=== PATIENT | female | born 1960 | race African-American/Black ===

== ENCOUNTER 2024-10-05 17:05 | Inpatient (IN) ==
[2024-10-05] MEDS ORDERED: MAGNESIUM, ALUMINUM HYDROXIDE 30 ML ORAL.SUSP PO PRN (22:08)
[2024-10-05] MEDS ORDERED: DOCUSATE SODIUM 100 MG CAPSULE PO PRN (22:08)
[2024-10-05 23:28] LABS: Basophils #(Absolute) Auto 0.1 (0.0-0.1); Basophils%(Percent) Auto 1.3 (0.1-0.85); Eosinophils#(Absolute)Auto 0.2 (0.0-0.2); Eosinophils%(Percent) Auto 3.5 % (0.4-2.8); Granulocytes#(Absolute)- Auto 3.6 (2.3-6.0); Hematocrit 31.7 % (35.9-46.7); Mean Corpuscular Volume 83.6 fl (81.0-93.7); Monocytes #(Absolute)- Auto 0.6 (1.1-3.1); Monocytes %(Percent)- Auto 10.6 % (3.6-9.8); Platelet Count 280 K/uL (152-353)
[2024-10-06] MEDS: NITROGLYCERIN 1 GM OINT...G. TD ONE
[2024-10-06] MEDS: 0.9 % SODIUM CHLORIDE 1000 ML 1,000 ML IV SCH (00:02)
[2024-10-06] MEDS: ACETAMINOPHEN 500 MG TABLET PO PRN (00:03)
[2024-10-06] MEDS: CLINDAMYCIN PHOSPHATE/D5W 600 MG/50 ML PIGGYBACK IV SCH (00:40)
[2024-10-06] MEDS ORDERED: POTASSIUM CHLORIDE IN WATER 10 MEQ/100 ML PIGGYBACK IV SCH ×2 (02:00→04:00)
[2024-10-06] MEDS: MAGNESIUM OXIDE 400 MG TABLET PO ONE (03:16)
[2024-10-06] MEDS: POTASSIUM CHLORIDE 20 MEQ TAB.ER.PRT PO ONE (03:17)
[2024-10-06] MEDS ORDERED: MAGNESIUM OXIDE 400 MG TABLET PO SCH (04:00)
[2024-10-06] MEDS ORDERED: POTASSIUM CHLORIDE 20 MEQ TAB.ER.PRT PO SCH (04:00)
[2024-10-06] MEDS: diphenhydrAMINE HCL 25 MG CAP PO ONE ×4 (04:01→10:53)
[2024-10-06 07:40] LABS: Basophils #(Absolute) Auto 0.1 (0.0-0.1); Basophils%(Percent) Auto 1.9 (0.1-0.85); Eosinophils#(Absolute)Auto 0.3 (0.0-0.2); Eosinophils%(Percent) Auto 6.2 % (0.4-2.8); Granulocytes % - Auto 58.1 % (47.8-71.3); Granulocytes#(Absolute)- Auto 2.9 (2.3-6.0); Hematocrit 33.7 % (35.9-46.7); Mean Corpuscular Volume 83.1 fl (81.0-93.7); Monocytes #(Absolute)- Auto 0.5 (1.1-3.1); Monocytes %(Percent)- Auto 9.5 % (3.6-9.8); Platelet Count 277 K/uL (152-353)
[2024-10-06 07:49] LABS: Potassium 3.2 mmol/L (3.6-5.2)
[2024-10-06] MEDS: ENOXAPARIN SODIUM 40 MG/0.4 ML SYRINGE SUBQ SCH (09:20)
[2024-10-06] MEDS: PANTOPRAZOLE SODIUM 40 MG TABLET.DR PO SCH (09:20)
[2024-10-06] MEDS ORDERED: TIZANIDINE HCL 4 MG TABLET PO PRN (11:31)
[2024-10-06] MEDS ORDERED: [UNRECOGNIZED DRUG - OTHER] PO SCH (11:45)
[2024-10-06] MEDS ORDERED: ESOMEPRAZOLE MAGNESIUM 40 MG PO SCH (11:45)
[2024-10-06] MEDS ORDERED: INSULIN GLARGINE SUBQ SCH (13:00)
[2024-10-06] MEDS ORDERED: OLMESARTAN 20 MG PO SCH (13:00)
[2024-10-06] MEDS ORDERED: TIRZEPATIDE 2.5 MG/0.5 ML SUBQ SCH (13:00)
[2024-10-06] MEDS ORDERED: FLUTICASONE UMECLIDIN VILANTER INH SCH (13:00)
--- NOTE | 2024-10-06 14:00 | History & Physical Report ---
H&P: HPI History of Present Illness Chief complaint: Cellulitis left lower extremity failed outpatient Narrative: Ms. Goodwin was admitted on 10/06/24 as direct admit from PCP due to cellulitis to BLE with pain, redness, and swelling that has progressively gotten worse. She states that it started as what appearted to be a bite that has worsened in 2 weeks with treatment with doxy, levaquin. CBC is WNL, mild hypokalemia at 3.2 improved from 3.0 yesterday. CRP elevated at 1.7, with D-Dimer 861. BLE US is currently pending. Patient was started on clindamycin 600mg IV q6hrs on admit. Review of Systems Status of ROS 10 or more systems reviewed and unremark able except as noted in history and below Musculoskeletal Reports: extremity pain and extremity swelling Integumentary/Breast Reports: itching, redness, skin pain, skin tenderness and skin swelling PFSH PFSH Medical History (Updated 10/06/24 @ 14:13 by Jeromy Krueger NP) Fibromyalgia HTN (hypertension) Arthritis Chronic pain Blind left eye Hypothyroid Diabetes GERD (gastroesophageal reflux disease) COPD (chronic obstructive pulmonary disease) History of fungal infection Left-sided weakness Surgical History (Updated 10/05/24 @ 18:28 by Jadyn Ahmadi LPN) Hx of tonsillectomy Hx of cholecystectomy History of partial hysterectomy S/P [employer] shunt Social History Problems where you live: no known problems Highest level of school completed/degree received: high school Meds Home Medications and Allergies Home Medications Medication Instructions Recorded Confirmed Type amlodipine 5 mg tablet 5 mg PO DAILY 10/06/24 10/06/24 History blood sugar diagnostic (True 10/06/24 10/06/24 History Metrix Glucose Test Strip) blood-glucose sensor (Dexcom G7 10/06/24 10/06/24 History Sensor device) brimonidine 0.1 % eye drops 1 drp ophthalmic (eye) DAILY 10/06/24 10/06/24 History (Alphagan P) empagliflozin 25 mg tablet 25 mg PO DAILY 10/06/24 10/06/24 History (Jardiance) esomeprazole magnesium 40 mg 40 mg PO Q24H 10/06/24 10/06/24 History capsule,delayed release fluconazole 100 mg tablet 100 mg PO DAILY 10/06/24 10/06/24 History fluticasone fur. 200 mcg-umeclid 1 inh inhalation Q24H 10/06/24 10/06/24 History 62.5 mcg-vilant 25 mcg inhalat.powder (Trelegy Ellipta) insulin glargine 100 unit/mL (3 10 unit subcut NIGHTLY 10/06/24 10/06/24 History mL) subcutaneous pen (Lantus Solostar U-100 Insulin) lancets 33 gauge (TRUEplus Lancets) 10/06/24 10/06/24 History levofloxacin 500 mg tablet 500 mg PO DAILY 10/06/24 10/06/24 History levothyroxine 175 mcg tablet 175 mcg PO DAILY 10/06/24 10/06/24 History linaclotide 145 mcg capsule 145 mcg PO DAILY 10/06/24 10/06/24 History (Linzess) metronidazole 500 mg tablet 500 mg PO BID 10/06/24 10/06/24 History montelukast 10 mg tablet 10 mg PO DAILY 10/06/24 10/06/24 History olmesartan 20 mg tablet 20 mg PO DAILY 10/06/24 10/06/24 History pantoprazole 40 mg tablet,delayed 40 mg PO DAILY 10/06/24 10/06/24 History release pregabalin 150 mg capsule 150 mg PO BID 10/06/24 10/06/24 History roflumilast 500 mcg tablet 500 mcg PO DAILY 10/06/24 10/06/24 History ropinirole 3 mg tablet 3 mg PO DAILY 10/06/24 10/06/24 History rosuvastatin 40 mg tablet 40 mg PO DAILY 10/06/24 10/06/24 History tamsulosin 0.4 mg capsule 0.4 mg PO DAILY 10/06/24 10/06/24 History tirzepatide 2.5 mg/0.5 mL 2.5 mg subcut .weekly 10/06/24 10/06/24 History subcutaneous pen injector (Amanda) tizanidine 4 mg tablet 4 mg PO DAILY PRN muscle spasticity 10/06/24 10/06/24 History Allergies Allergy/AdvReac Type Severity Reaction Status Date / Time amoxicillin AdvReac Verified 10/05/24 18:19 STEROIDS AdvReac Unknown Uncoded 10/05/24 18:19 Exam Exam: Patient is ambulatory throughout the room this morning. She complains of itching to bilateral extremities requiring benadryl. She does have +2 BLE edema Constitutional: normal general appearance Vital Signs - 24 hr 10/05/24 18:08 10/05/24 18:08 10/05/24 20:00 Temperature 98.2 F 98.5 F Pulse Rate [Left] 102 H 102 H 96 H Respiratory Rate 24 20 18 Blood Pressure Blood Pressure [Le ft Arm] 129/63 113/57 Pulse Oximetry 94 L 94 L 93 L Oxygen Delivery Me thod Room Air Room Air Room Air 10/06/24 00:00 10/06/24 00:00 10/06/24 03:54 Temperature 97.8 F 97.6 F Pulse Rate [Left] 92 H 83 Respiratory Rate 17 19 Blood Pressure 113/57 Blood Pressure [Le ft Arm] 138/64 123/65 Pulse Oximetry 95 98 Oxygen Delivery Me thod Room Air Nasal Cannula 10/06/24 08:00 10/06/24 12:00 Temperature 97.6 F 97.4 F L Pulse Rate [Left] 91 H 85 Respiratory Rate 19 19 Blood Pressure Blood Pressure [Le ft Arm] 147/69 127/60 Pulse Oximetry 97 98 Oxygen Delivery Me thod Room Air Room Air HENMT: normocephalic, head/scalp atraumatic and hearing grossly normal bilaterally Eyes: PERRL, EOMs intact bilaterally and conjunctivae normal Neck/C-Spine: visual inspection normal, trachea midline, cervical spine nontender and cervical full ROM noted Lymph: no lymphadenopathy noted Chest: inspection of chest normal Respiratory: breath sounds equal bilaterally, normal respiratory effort and clear to auscultation bilaterally Cardiovascular: normal heart rate noted, regular rhythm noted, no gallop, no rub, no murmur and no JVD Gastrointestinal: abdomen normal to inspection, abdomen soft to palpation and nontender to palpation Genitourinary: no CVA tenderness Back/Pelvis: spine normal to inspection and no thoracic spine tenderness Extremities: BLE +2 edema bilaterally with erythema to LLE more than R. Neurology: training assistant II-XII intact, no movement abnormality noted, no focal motor deficit noted, no sensory deficits noted, deep tendon reflexes 2+ bilaterally, gait normal, speech normal, coordination normal, no pronator drift noted, no fasciculations noted and GCS normal Psychiatry: mental status grossly normal, oriented x3, thought process normal, cooperative and memory normal Skin: erythema LLE Assessment and Plan Assessment and Plan (1) Cellulitis: Qualifiers: Site of cellulitis: extremity Site of cellulitis of extremity: lower extremity Laterality: unspecified laterality Qualified Code(s): L03.119 - Cellulitis of unspecified part of limb Code(s): L03.90 - Cellulitis, unspecified (2) Elevated d-dimer: Code(s): R79.89 - Other specified abnormal findings of blood chemistry (3) Diabetes: Qualifiers: Diabetes mellitus type: type 2 Diabetes mellitus marine oil terminal superintendent insulin use: with marine oil terminal superintendent use Diabetes mellitus complication status: without complication Qualified Code(s): E11.9 - Type 2 diabetes mellitus without complications; Z79.4 - terminologist (current) use of insulin Code(s): E11.9 - Type 2 diabetes mellitus without complications (4) HTN (hypertension): Qualifiers: Hypertension type: unspecified Qualified Code(s): I10 - Essential (primary) hypertension Code(s): I10 - Essential (primary) hypertension (5) Fibromyalgia: Code(s): M79.7 - Fibromyalgia Plan Clindamycin 600mg IV q6hrs US BLE Bendadryl 25mg po q4hrs prn Zyrtec 10mg po q day Acccheck ACHS w/ SSI Norvasc 5mg po daily Olmesartan 20mg po daily Rosuvastatin 40mg po HS Lyrica 150mg po BID tizandidine 4mg po daily prn Results Labs Labs: CBC 10/05/24 10/06/24 Range/Units 23:10 07:33 WBC 6.0 5.0 (4.3-9.3) K/uL RBC 3.8 L 4.1 (4.00-5.50) M/uL Hgb 10.0 L 10.9 L (12.5-15.8) gm/dL Hct 31.7 L 33.7 L (35.9-46.7) % Plt Count 280 277 (152-353) K/uL Gran % 60.0 58.1 (47.8-71.3) % Lymph % (Auto) 24.6 24.3 (20.0-43.0) % Blanco % (Auto) 10.6 H 9.5 (3.6-9.8) % Eos % (Auto) 3.5 H 6.2 H (0.4-2.8) % Baso % (Auto) 1.3 H 1.9 H (0.1-0.85) Lymph # (Auto) 1.5 1.2 (1.1-3.1) Blanco # (Auto) 0.6 L 0.5 L (1.1-3.1) Eos # (Auto) 0.2 0.3 H (0.0-0.2) Baso # (Auto) 0.1 0.1 (0.0-0.1) Absolute Gran (auto) 3.6 2.9 (2.3-6.0) CMP 10/05/24 10/06/24 23:10 07:33 Sodium 142 142 Potassium 3.0 L 3.2 L Chloride 108.0 H 109.0 H Carbon Dioxide 29 30 BUN 17 12 Creatinine 1.0 0.9 Glucose 130 H 147 H Calcium 9.3 9.3 Liver Function 10/05/24 Range/Units 23:10 Total Bilirubin 0.42 (0.0-1.0) mg/dL AST 10 L (15-37) U/L ALT 9 L (30-65) U/L Alkaline Phosphatase 79 (50-136) U/L Albumin 3.0 L (3.4-5.0) g/dL
[2024-10-06] MEDS: ROPINIROLE HCL 2 MG TABLET PO SCH (15:22)
[2024-10-06] MEDS: ATORVASTATIN CALCIUM 40 MG TABLET PO SCH (15:22)
[2024-10-06] MEDS: AMLODIPINE BESYLATE 5 MG TABLET PO SCH (15:23)
[2024-10-06] MEDS: CETIRIZINE HCL 10 MG TABLET PO SCH (15:24)
[2024-10-06] MEDS: BUDESONIDE/FORMOTEROL FUMARATE 160/4.5 MCG INH SCH (15:27)
[2024-10-06] MEDS: TIOTROPIUM BROMIDE 18 MCG CAP.W.DEV INH SCH (15:29)
[2024-10-06] MEDS: ONDANSETRON HCL/PF 4 MG/2 ML VIAL INJ PRN (20:53)
[2024-10-06] MEDS: INSULIN GLARGINE-YFGN 100 UNIT/ML INSULN.PEN SUBQ SCH (20:54)
[2024-10-06] MEDS: PREGABALIN 75 MG CAPSULE PO SCH (20:56)
[2024-10-07 08:23] LABS: Basophils #(Absolute) Auto 0.1 (0.0-0.1); Basophils%(Percent) Auto 0.8 (0.1-0.85); Eosinophils#(Absolute)Auto 0.4 (0.0-0.2); Eosinophils%(Percent) Auto 6.3 % (0.4-2.8); Granulocytes % - Auto 71.4 % (47.8-71.3); Granulocytes#(Absolute)- Auto 4.7 (2.3-6.0); Hematocrit 32.1 % (35.9-46.7); Mean Corpuscular Volume 83.8 fl (81.0-93.7); Monocytes #(Absolute)- Auto 0.7 (1.1-3.1); Platelet Count 264 K/uL (152-353); White Blood Count 6.6 K/uL (4.3-9.3)
[2024-10-07 08:29] LABS: Potassium 3.1 mmol/L (3.6-5.2)
[2024-10-07] MEDS ORDERED: LEVOTHYROXINE 175 MCG PO SCH (09:00)
[2024-10-07] MEDS: EMPAGLIFLOZIN 10 MG TABLET PO SCH (09:07)
[2024-10-07] MEDS: MONTELUKAST SODIUM 10 MG TABLET PO SCH (09:07)
[2024-10-07] MEDS: TAMSULOSIN HCL 0.4 MG CAPSULE PO SCH (09:07)
[2024-10-07] MEDS: LOSARTAN POTASSIUM 50 MG TABLET PO SCH (09:08)
[2024-10-07] MEDS: LEVOTHYROXINE SODIUM 100 MCG TABLET PO SCH (10:39)
[2024-10-07] MEDS: LEVOTHYROXINE SODIUM 75 MCG TABLET PO SCH (10:40)
[2024-10-07] MEDS: POTASSIUM CHLORIDE 20 MEQ TAB.ER.PRT PO ONE (10:40)
[2024-10-07] MEDS: BRIMONIDINE TARTRATE 0.15% OPTH SCH (10:41)
[2024-10-07] MEDS: LINACLOTIDE 145 MCG PO SCH (10:43)
[2024-10-07] MEDS: ROFLUMILAST 500 MCG PO SCH (10:43)
[2024-10-07] MEDS ORDERED: LOPERAMIDE HCL 2 MG CAPSULE PO PRN (11:00)
--- NOTE | 2024-10-07 13:35 | Progress Note ---
Progress Note: Subjective Subjective Interval history: Ms. Goodwin has made some improvement this morning with redness more confined to centralized areas on LLE. BLE US was negative for DVTs. She does have pain on palpation to LLE. She is now experiencing diarrhea secondary to abx will check stool and start abx as appropriate. Will start probiotics as well. Exam Exam: Patient is ambulatory throughout the room this morning. She complains of itching to bilateral extremities requiring benadryl. She does have +2 BLE edema Constitutional: normal general appearance Vital Signs - 24 hr 10/06/24 15:23 10/06/24 16:00 10/06/24 20:00 Temperature 98.2 F 98.3 F Pulse Rate [Left] 89 93 H Respiratory Rate 19 17 Blood Pressure 147/69 Blood Pressure [Le ft Arm] 136/72 129/67 Pulse Oximetry 96 93 L Oxygen Delivery Me thod Room Air Room Air Oxygen Flow Rate Fraction of Inspir ed Oxygen 10/06/24 20:53 10/06/24 23:59 10/07/24 04:00 Temperature 97.9 F 97.8 F Pulse Rate [Left] 91 H 79 Respiratory Rate 17 18 Blood Pressure Blood Pressure [Le ft Arm] 123/62 137/70 Pulse Oximetry 93 L 94 L 96 Oxygen Delivery Me thod Room Air Room Air Room Air Oxygen Flow Rate Fraction of Inspir ed Oxygen 21 10/07/24 08:00 10/07/24 09:05 10/07/24 09:08 Temperature 98.1 F Pulse Rate [Left] 96 H Respiratory Rate 22 Blood Pressure 154/72 154/72 Blood Pressure [Le ft Arm] 134/72 Pulse Oximetry 90 L Oxygen Delivery Me thod Room Air Oxygen Flow Rate Fraction of Inspir ed Oxygen 10/07/24 12:00 Temperature 97.5 F L Pulse Rate [Left] 101 H Respiratory Rate 19 Blood Pressure Blood Pressure [Le ft Arm] 110/62 Pulse Oximetry 97 Oxygen Delivery Me thod Nasal Cannula Oxygen Flow Rate 2 Fraction of Inspir ed Oxygen HENMT: normocephalic, head/scalp atraumatic and hearing grossly normal bilaterally Eyes: PERRL, EOMs intact bilaterally and conjunctivae normal Neck/C-Spine: visual inspection normal, trachea midline, cervical spine non tender and cervical full ROM noted Lymph: no lymphadenopathy noted Chest: inspection of chest normal Respiratory: breath sounds equal bilaterally, normal respiratory effort and clear to auscultation bilaterally Cardiovascular: normal heart rate noted, regular rhythm noted, no gallop, no rub, no murmur and no JVD Gastrointestinal: abdomen normal to inspection, abdomen soft to palpation and nontender to palpation Genitourinary: no CVA tenderness Back/Pelvis: spine normal to inspection and no thoracic spine tenderness Extremities: BLE +2 edema bilaterally with erythema to LLE more than R. Neurology: galley cook II-XII intact, no movement abnormality noted, no focal motor deficit noted, no sensory deficits noted, deep tendon reflexes 2+ bilaterally, gait normal, speech normal, coordination normal, no pronator drift noted, no fasciculations noted and GCS normal Psychiatry: mental status grossly normal, oriented x3, thought process normal, cooperative and memory normal Skin: erythema LLE, palpable lymph nodes painful to touch Progress Note: Objective Labs Labs: CBC 10/07/24 Range/Units 08:05 WBC 6.6 (4.3-9.3) K/uL RBC 3.8 L (4.00-5.50) M/uL Hgb 10.3 L (12.5-15.8) gm/dL Hct 32.1 L (35.9-46.7) % Plt Count 264 (152-353) K/uL Gran % 71.4 H (47.8-71.3) % Lymph % (Auto) 11.5 L (20.0-43.0) % Bartholomew % (Auto) 10.0 H (3.6-9.8) % Eos % (Auto) 6.3 H (0.4-2.8) % Baso % (Auto) 0.8 (0.1-0.85) Lymph # (Auto) 0.8 L (1.1-3.1) Bartholomew # (Auto) 0.7 L (1.1-3.1) Eos # (Auto) 0.4 H (0.0-0.2) Baso # (Auto) 0.1 (0.0-0.1) Absolute Gran (auto) 4.7 (2.3-6.0) CMP 10/07/24 08:05 Sodium 144 Potassium 3.1 L Chloride 109.0 H Carbon Dioxide 28 BUN 9 Creatinine 0.8 Glucose 139 H Calcium 9.0 Progress Note: A&P Assessment and Plan (1) Cellulitis: Qualifiers: Site of cellulitis: extremity Site of cellulitis of extremity: lower extremity Laterality: unspecified laterality Qualified Code(s): L03.119 - Cellulitis of unspecified part of limb (2) Elevated d-dimer: (3) Diabetes: Qualifiers: Diabetes mellitus type: type 2 Diabetes mellitus ad terminal makeup operator insulin use: with detention use Diabetes mellitus complication status: without complication Qualified Code(s): E11.9 - Type 2 diabetes mellitus without complications; Z79.4 - remote computer terminal operator (current) use of insulin (4) HTN (hypertension): Qualifiers: Hypertension type: unspecified Qualified Code(s): I10 - Essential (primary) hypertension (5) Fibromyalgia: Plan Clindamycin 600mg IV q6hrs US BLE-negative Bendadryl 25mg po q4hrs prn Zyrtec 10mg po q day Acccheck ACHS w/ SSI Norvasc 5mg po daily Olmesartan 20mg po daily Rosuvastatin 40mg po HS Lyrica 150mg po BID tizandidine 4mg po daily prn Check stool studies Add probiotic daily Immodium per protocol Fall Risk Details [place] Fall Scale Risk Level: Low Fall Risk Current Medications: Current Medications Acetaminophen (Acetaminophen 500 Mg Tablet) 1,000 mg PO Q6H PRN PRN Reason: MILD PAIN SCALE 1-4/fever Last Admin: 10/06/24 20:55 Dose: 1,000 mg Amlodipine Besylate (Amlodipine Besylate 5 Mg Tablet) 5 mg PO DAILY [facility] Last Admin: 10/07/24 09:05 Dose: 5 mg Atorvastatin Calcium (Atorvastatin Calcium 40 Mg Tablet) 80 mg PO DAILY [facility] Last Admin: 10/07/24 09:08 Dose: 80 mg Brimonidine Tartrate (Brimonidine Tartrate 0.15% 5 Ml Drops) 1 drop OPTH DAILY [facility] Last Admin: 10/07/24 10:41 Dose: 1 drop Budesonide/Formoterol Fumarate (Budesonide/Formoterol Fumarate 160/4.5 Mcg) 1 puff INH DAILY [facility] Last Admin: 10/06/24 15:27 Dose: 1 puff Cetirizine HCl (Cetirizine Hcl 10 Mg Tablet) 10 mg PO DAILY [facility] Last Admin: 10/07/24 09:09 Dose: 10 mg Diphenhydramine HCl (Diphenhydramine Hcl 25 Mg Cap) 25 mg PO Q4H PRN PRN Reason: Itching Docusate Sodium (Docusate Sodium 100 Mg Capsule) 100 mg PO DAILY PRN PRN Reason: Constipation Empagliflozin (Empagliflozin 10 Mg Tablet) 25 mg PO DAILY [facility] Last Admin: 10/07/24 09:07 Dose: 25 mg Enoxaparin Sodium (Enoxaparin Sodium 40 Mg/0.4 Ml Syringe) 40 mg SUBQ DAILY [facility] Last Admin: 10/07/24 09:05 Dose: 40 mg Sodium Chloride (Sodium Chloride) 1,000 mls @ 100 mls/hr IV CONT [facility] Last Admin: 10/07/24 03:12 Dose: 100 mls/hr Clindamycin Phosphate/Dextrose (Clindamycin Phosphate/D5w) 600 mg in 50 mls @ 50 mls/hr IV Q6H [facility] Last Admin: 10/07/24 05:34 Dose: 50 mls/hr Potassium Chloride (Potassium Cl 10 Meq/100 Ml Sarahi) 10 meq in 100 mls @ 100 mls/hr IV ONCE TODD Potassium Chloride (Potassium Cl 10 Meq/100 Ml Sarahi) 10 meq in 100 mls @ 100 mls/hr IV ONCE TODD Insulin Glargine-yfgn (Insulin Glargine-Yfgn 100 Unit/Ml Insuln.Pen) 10 unit SUBQ BEDTIME [facility] Last Admin: 10/06/24 20:54 Dose: 10 unit Insulin Human Regular (Insulin Regular, Human 100 Unit/Ml) 0 unit SUBQ ACHS PRN; Protocol PRN Reason: hyperglycemia Insulin Human Regular (Insulin Regular, Human 100 Unit/Ml) 0 unit SUBQ ACHS PRN; Protocol PRN Reason: hyperglycemia Ketorolac Tromethamine (Ketorolac 30 Mg/Ml Inj Vial) 30 mg IVP Q6H PRN PRN Reason: MILD PAIN SCALE 1-4 Stop: 10/11/24 14:59 Lactobacillus Acidophilus (L. Acidophilus/L.Bulgaricus 1 Each Tablet) 1 each PO DAILY [facility] Levothyroxine Sodium (Levothyroxine Sodium 75 Mcg Tablet) 75 mcg PO QDAC [facility] Last Admin: 10/07/24 10:40 Dose: 75 mcg Levothyroxine Sodium (Levothyroxine Sodium 100 Mcg Tablet) 100 mcg PO QDAC [facility] Last Admin: 10/07/24 10:39 Dose: 100 mcg Loperamide HCl (Loperamide Hcl 2 Mg Capsule) 2 mg PO Q6H PRN PRN Reason: Diarrhea Losartan Potassium (Losartan Potassium 50 Mg Tablet) 20 mg PO DAILY [facility] Last Admin: 10/07/24 09:08 Dose: 20 mg Magnesium Hydroxide (Magnesium, Aluminum Hydroxide 30 Ml Oral.Susp) 30 ml PO DAILY PRN PRN Reason: Constipation Montelukast Sodium (Montelukast Sodium 10 Mg Tablet) 10 mg PO DAILY [facility] Last Admin: 10/07/24 09:07 Dose: 10 mg Non-Formulary Medication (Linaclotide [Linzess]) 145 mcg PO DAILY [facility] Non-Formulary Medication (Roflumilast) 500 mcg PO DAILY [facility] Non-Formulary Medication (Tirzepatide [Mounjaro]) 2.5 mg SUBQ .weekly [facility] Ondansetron HCl (Ondansetron Hcl/Pf 4 Mg/2 Ml Vial) 4 mg INJ Q4H PRN PRN Reason: Nausea And Vomiting Last Admin: 10/06/24 20:53 Dose: 4 mg Pantoprazole Sodium (Pantoprazole Sodium 40 Mg Tablet.Dr) 40 mg PO DAILY [facility] Last Admin: 10/07/24 09:09 Dose: 40 mg Pregabalin (Pregabalin 75 Mg Capsule) 150 mg PO BID [facility] Last Admin: 10/07/24 09:05 Dose: 150 mg Ropinirole HCl (Ropinirole Hcl 2 Mg Tablet) 3 mg PO DAILY [facility] Last Admin: 10/07/24 09:06 Dose: 3 mg Tamsulosin HCl (Tamsulosin Hcl 0.4 Mg Capsule) 0.4 mg PO DAILY [facility] Last Admin: 10/07/24 09:07 Dose: 0.4 mg Tiotropium [place] (Tiotropium [place] 18 Mcg Cap.W.Dev) 18 mcg INH DAILY [facility] Last Admin: 10/06/24 15:29 Dose: 18 mcg Tizanidine HCl (Tizanidine Hcl 4 Mg Tablet) 4 mg PO DAILY PRN PRN Reason: muscle spasticity Tramadol HCl (Tramadol Hcl 50 Mg Tablet) 50 mg PO Q4H PRN PRN Reason: MODERATE PAIN 5-7 Time Spent With Patient Time: Total time spent is greater than 50% in coordination of care (as documented) at patient's floor/unit and/or counseling patient:
[2024-10-07] MEDS: TRAMADOL HCL 50 MG TABLET PO PRN (16:01)
[2024-10-07] MEDS: ACIDOPHILUS PO SCH (16:03)
[2024-10-07] MEDS: BULGARICUS PO SCH (16:03)
[2024-10-07] MEDS: KETOROLAC 30 MG/ML INJ VIAL IVP PRN (17:54)
[2024-10-08] MEDS: diphenhydrAMINE HCL 25 MG CAP PO PRN (03:30)
[2024-10-08 04:39] LABS: Mean Corpuscular Volume 84.1 fl (81.0-93.7); White Blood Count 6.3 K/uL (4.3-9.3)
[2024-10-08 04:40] LABS: Basophils%(Percent) Auto 0.8 (0.1-0.85); Eosinophils#(Absolute)Auto 0.4 (0.0-0.2); Eosinophils%(Percent) Auto 6.4 % (0.4-2.8); Granulocytes % - Auto 64.4 % (47.8-71.3); Monocytes #(Absolute)- Auto 0.7 (1.1-3.1); Monocytes %(Percent)- Auto 11.4 % (3.6-9.8); Platelet Count 244 K/uL (152-353)
[2024-10-08 04:42] LABS: Potassium 3.5 mmol/L (3.6-5.2)
[2024-10-08] MEDS ORDERED: ACETAMINOPHEN 500 MG TABLET PO PRN (09:00)
[2024-10-08] MEDS: POTASSIUM CHLORIDE 20 MEQ TAB.ER.PRT PO ONE (09:43)
--- NOTE | 2024-10-08 16:56 | Progress Note ---
Progress Note: Subjective Subjective Interval history: Ms. Goodwin has made some improvement this morning with redness more confined to centralized areas on LLE. BLE US was negative for DVTs. She does have pain on palpation to LLE. She is now experiencing diarrhea secondary to abx will check stool and start abx as appropriate. Will start probiotics as well. Exam Exam: Patient is ambulatory throughout the room this morning. She complains of itching to bilateral extremities requiring benadryl. She does have +2 BLE edema Constitutional: abnormal general appearance (disheveled) and (chronically ill), no apparent distress, abnormal body habitus (obese), limitations noted (physical limitations) and alert Vital Signs - 24 hr 10/07/24 20:00 10/08/24 00:00 10/08/24 04:00 Temperature 97.8 F 98 F 98.1 F Pulse Rate [Left] 108 H 94 H 88 Respiratory Rate 17 18 19 Blood Pressure Blood Pressure [Le ft Arm] 138/70 136/72 128/68 Pulse Oximetry 96 98 96 Oxygen Delivery Me thod Nasal Cannula Room Air Oxygen Flow Rate 2 10/08/24 08:00 10/08/24 09:32 10/08/24 11:48 Temperature 97.6 F Pulse Rate [Left] 90 Respiratory Rate 19 Blood Pressure 134/65 122/60 Blood Pressure [Le ft Arm] 134/65 Pulse Oximetry 92 L Oxygen Delivery Me thod Nasal Cannula Oxygen Flow Rate 2 10/08/24 12:00 10/08/24 16:00 Temperature 97.8 F 98.3 F Pulse Rate [Left] 94 H 102 H Respiratory Rate 17 20 Blood Pressure Blood Pressure [Le ft Arm] 134/71 137/64 Pulse Oximetry 95 96 Oxygen Delivery Me thod Nasal Cannula Nasal Cannula Oxygen Flow Rate 2 2 HENMT: normocephalic, head/scalp atraumatic and hearing grossly normal bilaterally Eyes: PERRL, EOMs intact bilaterally and conjunctivae normal Neck/C-Spine: visual inspection normal, trachea midline, cervical spine nontender and cervical full ROM noted Lymph: no lymphadenopathy noted Chest: inspection of chest normal Respiratory: breath sounds equal bilaterally, normal respiratory effort and clear to auscultation bilaterally Cardiovascular: normal heart rate noted, regular rhythm noted, no gallop, no rub, no murmur and no JVD Gastrointestinal: abdomen abnormal to inspection (obese), abdomen soft to palpation, nontender to palpation, nondistended, normoactive bowel sounds, hepatosplenomegaly noted, no masses, no pulsatile mass and no ascites Genitourinary: no CVA tenderness and bladder normal to palpation Back/Pelvis: spine normal to inspection and no thoracic spine tenderness Extremities: normal to inspection and normal to palpation BLE trace edema bilaterally with erythema to LLE more than R. not as angry today and localizing Neurology: glass cleaning machine tender II-XII intact, no movement abnormality noted, no focal motor deficit noted, sensory deficit noted, deep tendon reflexes 2+ bilaterally, gait abnormality noted (antalgic), speech normal, coordination normal, no pronator drift noted, no fasciculations noted and GCS normal Psychiatry: mental status grossly normal, oriented x3, thought process normal, cooperative, affect abnormality noted (flat), psychomotor abnormality noted (slow) and memory normal Feel stressed/tense/nervous/anxious/difficulty sleeping: not at all Skin: skin color normal, rash noted, no lesions, ecchymosis noted, no wounds, no lacerations, skin turgor abnormal, no jaundice, no petechiae, no mottling, nails abnormality noted and alopecia noted (lots of hair on the floor and bed where the hair is falling out while she b) Reports (sheds easily) erythema LLE, palpable lymph nodes painful to touch Progress Note: Objective Labs Labs: CBC 10/08/24 Range/Units 04:10 WBC 6.3 (4.3-9.3) K/uL RBC 3.6 L (4.00-5.50) M/uL Hgb 9.4 L (12.5-15.8) gm/dL Hct 30.0 L (35.9-46.7) % Plt Count 244 (152-353) K/uL Gran % 64.4 (47.8-71.3) % Lymph % (Auto) 17.0 L (20.0-43.0) % [place] % (Auto) 11.4 H (3.6-9.8) % Eos % (Auto) 6.4 H (0.4-2.8) % Baso % (Auto) 0.8 (0.1-0.85) Lymph # (Auto) 1.1 (1.1-3.1) [place] # (Auto) 0.7 L (1.1-3.1) Eos # (Auto) 0.4 H (0.0-0.2) Baso # (Auto) 0.0 (0.0-0.1) Absolute Gran (auto) 4.0 (2.3-6.0) CMP 10/08/24 04:10 Sodium 145 Potassium 3.5 L Chloride 111.0 H Carbon Dioxide 28 BUN 16 Creatinine 1.0 Glucose 98 Calcium 8.9 Liver Function 10/08/24 Range/Units 04:10 Total Bilirubin 0.64 (0.0-1.0) mg/dL AST 13 L (15-37) U/L ALT 18 L (30-65) U/L Alkaline Phosphatase 79 (50-136) U/L Albumin 2.7 L (3.4-5.0) g/dL Pulse Oximetry Attestation: I have reviewed the pertinent pulse oximetry results. Imaging Venous US: Attestation: I have reviewed the pertinent imaging results. Radiologist's impression: EXAM: US VENOUS DUPLEX LE BI HISTORY: d- dimer, cellulitis, leg/calf, edemad- dimer, cellulitis, leg/calf, edema; COMPARISON: None. TECHNIQUE: Grayscale and color Doppler imaging of the deep venous system of the right and left leg FINDINGS: Normal color Doppler flow, compressibility, and augmentation are observed within the right and left lower extremity from the common femoral vein through the posterior tibial vein. No DVT is identified. There is soft tissue edema of the left lower extremity. A left inguinal lymph node measuring 5.6 x 1.5 x 4.2 cm may be reactive in the setting of cellulitis. IMPRESSION: No DVT identified. Soft tissue edema of the left lower extremity with no organized fluid collections within the field of view Left inguinal lymphadenopathy may be reactive in the setting of suspected cellulitis. Attention to this finding on routine follow-up recommended. Progress Note: A&P Assessment and Plan (1) Cellulitis: Qualifiers: Site of cellulitis: extremity Site of cellulitis of extremity: lower extremity Laterality: unspecified laterality Qualified Code(s): L03.119 - Cellulitis of unspecified part of limb (2) Elevated d-dimer: (3) Diabetes: Qualifiers: Diabetes mellitus type: type 2 Diabetes mellitus custodial insulin use: with custodial use Diabetes mellitus complication status: without complication Qualified Code(s): E11.9 - Type 2 diabetes mellitus without complications; Z79.4 - intermediate school teacher (current) use of insulin (4) HTN (hypertension): Qualifiers: Hypertension type: unspecified Qualified Code(s): I10 - Essential (primary) hypertension (5) Fibromyalgia: Plan Clindamycin 600mg IV q6hrs US BLE-negative Bendadryl 25mg po q4hrs prn Zyrtec 10mg po q day Acccheck ACHS w/ SSI Norvasc 5mg po daily Olmesartan 20mg po daily Rosuvastatin 40mg po HS Lyrica 150mg po BID tizandidine 4mg po daily prn Check stool studies Add probiotic daily Immodium per protocol Fall Risk Details [place] Fall Scale Risk Level: Moderate Fall Risk Current Medications: Current Medications Acetaminophen (Acetaminophen 500 Mg Tablet) 1,000 mg PO Q6H PRN PRN Reason: MILD PAIN SCALE 1-4 Last Admin: 10/08/24 03:30 Dose: 1,000 mg Acetaminophen (Acetaminophen 500 Mg Tablet) 1,000 mg PO Q6H PRN PRN Reason: Fever OF 100.5 OR GREATER Amlodipine Besylate (Amlodipine Besylate 5 Mg Tablet) 5 mg PO DAILY [facility] Last Admin: 10/08/24 09:32 Dose: 5 mg Atorvastatin Calcium (Atorvastatin Calcium 40 Mg Tablet) 80 mg PO DAILY [facility] Last Admin: 10/08/24 09:34 Dose: 80 mg Brimonidine Tartrate (Brimonidine Tartrate 0.15% 5 Ml Drops) 1 drop OPTH DAILY [facility] Last Admin: 10/08/24 09:39 Dose: 1 drop Budesonide/Formoterol Fumarate (Budesonide/Formoterol Fumarate 160/4.5 Mcg) 1 puff INH DAILY [facility] Last Admin: 10/08/24 09:39 Dose: 1 puff Cetirizine HCl (Cetirizine Hcl 10 Mg Tablet) 10 mg PO DAILY [facility] Last Admin: 10/08/24 09:37 Dose: 10 mg Diphenhydramine HCl (Diphenhydramine Hcl 25 Mg Cap) 25 mg PO Q4H PRN PRN Reason: Itching Last Admin: 10/08/24 09:36 Dose: 25 mg Docusate Sodium (Docusate Sodium 100 Mg Capsule) 100 mg PO DAILY PRN PRN Reason: Constipation Empagliflozin (Empagliflozin 10 Mg Tablet) 25 mg PO DAILY [facility] Last Admin: 10/08/24 09:36 Dose: 25 mg Enoxaparin Sodium (Enoxaparin Sodium 40 Mg/0.4 Ml Syringe) 40 mg SUBQ DAILY [facility] Last Admin: 10/08/24 09:32 Dose: 40 mg Clindamycin Phosphate/Dextrose (Clindamycin Phosphate/D5w) 600 mg in 50 mls @ 50 mls/hr IV Q6H [facility] Last Admin: 10/08/24 11:47 Dose: 50 mls/hr Insulin Glargine-yfgn (Insulin Glargine-Yfgn 100 Unit/Ml Insuln.Pen) 10 unit SUBQ BEDTIME [facility] Last Admin: 10/07/24 21:00 Dose: 10 unit Insulin Human Regular (Insulin Regular, Human 100 Unit/Ml) 0 unit SUBQ ACHS PRN; Protocol PRN Reason: hyperglycemia Ketorolac Tromethamine (Ketorolac 30 Mg/Ml Inj Vial) 30 mg IVP Q6H PRN PRN Reason: MILD PAIN SCALE 1-4 Stop: 10/11/24 14:59 Last Admin: 10/08/24 01:32 Dose: 30 mg Lactobacillus Acidophilus (L. Acidophilus/L.[place] 1 Each Tablet) 1 each PO DAILY [facility] Last Admin: 10/08/24 09:37 Dose: 1 each Levothyroxine Sodium (Levothyroxine Sodium 75 Mcg Tablet) 75 mcg PO QDAC [facility] Last Admin: 10/08/24 09:38 Dose: 75 mcg Levothyroxine Sodium (Levothyroxine Sodium 100 Mcg Tablet) 100 mcg PO QDAC [facility] Last Admin: 10/08/24 09:35 Dose: 100 mcg Loperamide HCl (Loperamide Hcl 2 Mg Capsule) 2 mg PO Q6H PRN PRN Reason: Diarrhea Losartan Potassium (Losartan Potassium 50 Mg Tablet) 20 mg PO DAILY [facility] Last Admin: 10/08/24 11:48 Dose: 20 mg Magnesium Hydroxide (Magnesium, Aluminum Hydroxide 30 Ml Oral.Susp) 30 ml PO DAILY PRN PRN Reason: Constipation Montelukast Sodium (Montelukast Sodium 10 Mg Tablet) 10 mg PO DAILY [facility] Last Admin: 10/08/24 09:34 Dose: 10 mg Non-Formulary Medication (Linaclotide [Linzess]) 145 mcg PO DAILY [facility] Last Admin: 10/07/24 15:57 Dose: Not Given Non-Formulary Medication (Roflumilast) 500 mcg PO DAILY [facility] Last Admin: 10/07/24 15:57 Dose: Not Given Non-Formulary Medication (Tirzepatide [Mounjaro]) 2.5 mg SUBQ .weekly [facility] Ondansetron HCl (Ondansetron Hcl/Pf 4 Mg/2 Ml Vial) 4 mg INJ Q4H PRN PRN Reason: Nausea And Vomiting Last Admin: 10/06/24 20:53 Dose: 4 mg Pantoprazole Sodium (Pantoprazole Sodium 40 Mg Tablet.Dr) 40 mg PO DAILY [facility] Last Admin: 10/08/24 09:36 Dose: 40 mg Pregabalin (Pregabalin 75 Mg Capsule) 150 mg PO BID [facility] Last Admin: 10/08/24 09:33 Dose: 150 mg Ropinirole HCl (Ropinirole Hcl 2 Mg Tablet) 3 mg PO DAILY [facility] Last Admin: 10/08/24 09:35 Dose: 3 mg Tamsulosin HCl (Tamsulosin Hcl 0.4 Mg Capsule) 0.4 mg PO DAILY [facility] Last Admin: 10/08/24 09:37 Dose: 0.4 mg Tiotropium [place] (Tiotropium [place] 18 Mcg Cap.W.Dev) 18 mcg INH DAILY [facility] Last Admin: 10/08/24 09:40 Dose: 18 mcg Tizanidine HCl (Tizanidine Hcl 4 Mg Tablet) 4 mg PO DAILY PRN PRN Reason: muscle spasticity Tramadol HCl (Tramadol Hcl 50 Mg Tablet) 50 mg PO Q4H PRN PRN Reason: MODERATE PAIN 5-7 Last Admin: 10/07/24 16:01 Dose: 50 mg Time Spent With Patient Time: Total time spent is greater than 50% in coordination of care (as documented) at patient's floor/unit and/or counseling patient: Time with patient: greater than 35 minutes
[2024-10-09 06:04] LABS: Basophils #(Absolute) Auto 0.1 (0.0-0.1); Basophils%(Percent) Auto 1.2 (0.1-0.85); Eosinophils#(Absolute)Auto 0.4 (0.0-0.2); Eosinophils%(Percent) Auto 5.1 % (0.4-2.8); Granulocytes % - Auto 71.6 % (47.8-71.3); Hematocrit 30.3 % (35.9-46.7); Mean Corpuscular Volume 83.1 fl (81.0-93.7); Monocytes #(Absolute)- Auto 0.8 (1.1-3.1); Monocytes %(Percent)- Auto 9.2 % (3.6-9.8); Platelet Count 259 K/uL (152-353); White Blood Count 8.4 K/uL (4.3-9.3)
[2024-10-09 06:28] LABS: Potassium 3.6 mmol/L (3.6-5.2)
[2024-10-09 11:47] VITALS: BP 148/62; PULSE 111; RESP 15; TEMP 98.3
--- NOTE | 2024-10-09 12:19 | Discharge Summary ---
DS: Providers Provider Date of admission: 10/05/24 17:05 Primary care physician: Leena Patterson NP Admitting clinician: Leena Patterson Attending physician on admission: Jeromy Krueger Attending physician on discharge: Kathy Watkins Discharging clinician: Kathy Watkins Anticipated date of discharge: 10/09/24 DS: Diagnosis Discharge Diagnosis (1) Cellulitis: Qualifiers: Laterality: unspecified laterality Site of cellulitis: extremity Site of cellulitis of extremity: lower extremity Qualified Code(s): L03.119 - Cellulitis of unspecified part of limb (2) Elevated d-dimer: (3) Diabetes: Qualifiers: Diabetes mellitus complication status: without complication Diabetes mellitus terminal supervisor insulin use: with residential use Diabetes mellitus type: type 2 Qualified Code(s): E11.9 - Type 2 diabetes mellitus without complications; Z79.4 - intermediate school teacher (current) use of insulin (4) HTN (hypertension): Qualifiers: Hypertension type: unspecified Qualified Code(s): I10 - Essential (primary) hypertension (5) Fibromyalgia: DS: Summary Hospital Course Hospital Course: Patient maintained a CBC WBC 6.0 up to 8.4 on discharge. Hemoglobin remained stable from 10 on admission on 10/06/2019-9.6 on discharge on 10/09/2024. Patient's potassium started at 3.0 on 10/05/2024 and corrected to 3.6 on discharge phosphorus was elevated on last 2 days of admission value supplementation given his C-reactive protein was 1.7 on 10 06 and remained stable although not rechecked during hospitalization but with improvement of lymphadenitis and erythema of the legs and swelling to suggest improvement of inflammatory process. Albumin went from 3.0 on admit -2.8 on discharge. Patient's pain improved over the first 48 hours of admission although she states still very tender and unable to walk without great difficulty until the day of discharge and patient was able to ambulate with assistance states her pain was down to a 1 at rest and up to a 4 with ambulation. Tolerated the pressure dressing up to her thigh when put on appropriately. Patient remained afebrile throughout hospital stay. Venous Doppler on 10 06 showed that the patient had cellulitis Left lower extremity with soft tissue edema noted she had a left inguinal lymphadenopathy secondary to the cellulitis of the left lower extremity Status at Discharge Functional status at discharge: uses cane/walker Overall status at discharge: patient is progressing back to baseline Time Spent with Patient Time attestation: Total time spent providing and/or coordinating discharge services: Time spent: greater than 30 minutes Exam Exam: Patient is ambulatory throughout the room this morning. She complains of itching to bilateral extremities requiring benadryl. She does have +2 BLE edema Constitutional: abnormal general appearance (disheveled) and (chronically ill), no apparent distress, abnormal body habitus (obese), limitations noted (physical limitations) and alert Vital Signs - 24 hr 10/08/24 16:00 10/08/24 20:00 10/09/24 00:00 Temperature 98.3 F 98.4 F 97.8 F Pulse Rate [Left] 102 H 111 H Respiratory Rate 20 21 21 Blood Pressure Blood Pressure [Le ft Arm] 137/64 142/68 112/64 Pulse Oximetry 96 95 95 Oxygen Delivery Me thod Nasal Cannula Room Air Nasal Can nula Room Air Nasal Can nula Oxygen Flow Rate 2 2 2 10/09/24 04:00 10/09/24 07:55 10/09/24 09:13 Temperature 98.4 F 98.4 F Pulse Rate [Left] 101 H 102 H Respiratory Rate 19 19 Blood Pressure 140/69 Blood Pressure [Le ft Arm] 142/73 140/69 Pulse Oximetry 95 93 L Oxygen Delivery Me thod Room Air Nasal Can nula Nasal Cannula Oxygen Flow Rate 2 10/09/24 09:15 10/09/24 11:45 Temperature 98.3 F Pulse Rate [Left] 111 H Respiratory Rate 15 Blood Pressure 140/69 Blood Pressure [Le ft Arm] 148/62 Pulse Oximetry 90 L Oxygen Delivery Me thod Nasal Cannula Oxygen Flow Rate 2 HENMT: normocephalic, head/scalp atraumatic and hearing grossly normal bilaterally Eyes: PERRL, EOMs intact bilaterally and conjunctivae normal Neck/C-Spine: visual inspection normal, trachea midline, cervical spine nontender and cervical full ROM noted Lymph: no lymphadenopathy noted Chest: inspection of chest normal Respiratory: breath sounds equal bilaterally, normal respiratory effort and clear to auscultation bilaterally Cardiovascular: normal heart rate noted, regular rhythm noted, no gallop, no rub, no murmur and no JVD Gastrointestinal: abdomen abnormal to inspection (obese), abdomen soft to palpation, nontender to palpation, nondistended, normoactive bowel sounds, hepatosplenomegaly noted, no masses, no pulsatile mass and no ascites Genitourinary: no CVA tenderness and bladder normal to palpation Back/Pelvis: spine normal to inspection and no thoracic spine tenderness Extremities: normal to inspection and normal to palpation Right leg erythema and swelling had resolved overnight. Left leg with slightly increased from the left without obvious edema no pitting erythema had resolved except for the area of the lymphadenitis and was not near as angry and not as tender to palpation on exam today as yesterday the patient was better able to tolerate walking around the room with assistance in short distances. Neurology: guyline operator II-XII intact, no movement abnormality noted, no focal motor deficit noted, sensory deficit noted, deep tendon reflexes 2+ bilaterally, gait abnormality noted (antalgic), speech normal, coordination normal, no pronator drift noted, no fasciculations noted and GCS normal Psychiatry: mental status grossly normal, oriented x3, thought process normal, cooperative, affect abnormality noted (flat), psychomotor abnormality noted (slow) and memory normal Feel stressed/tense/nervous/anxious/difficulty sleeping: not at all Skin: skin color normal, rash noted, no lesions, ecchymosis noted, no wounds, no lacerations, skin turgor abnormal, no jaundice, no petechiae, no mottling, nails abnormality noted and alopecia noted (lots of hair on the floor and bed where the hair is falling out while she b) Reports (sheds easily) erythema LLE, palpable lymph nodes painful to touch DS: Data Data Completed and Pending Labs on day of discharge: Labs from last 24 hours 10/09/24 05:30 WBC 8.4 RBC 3.7 L Hgb 9.6 L Hct 30.3 L MCV 83.1 MCH 26.5 L MCHC 31.8 L RDW 17.0 H Plt Count 259 MPV 9.7 Gran % 71.6 H Lymph % (Auto) 12.9 L [place] % (Auto) 9.2 Eos % (Auto) 5.1 H Baso % (Auto) 1.2 H Lymph # (Auto) 1.1 [place] # (Auto) 0.8 L Eos # (Auto) 0.4 H Baso # (Auto) 0.1 Absolute Gran (auto) 6.0 Sodium 143 Potassium 3.6 Chloride 110.0 H Carbon Dioxide 27 Anion Gap 6.0 BUN 13 Creatinine 1.0 Estimated GFR 64.1 Glucose 137 H Calcium 9.3 Phosphorus 5.1 H Magnesium 2.0 Total Bilirubin 0.96 AST 19 ALT 26 L Alkaline Phosphatase 101 B-Natriuretic Peptide 271.0 H Total Protein 7.4 Albumin 2.8 L Preliminary micro results at discharge 10/07/24 19:45 Stool Culture - Preliminary Stool - Watery 10/05/24 22:30 Blood Culture - Preliminary Blood - Venous Draw (Peripheral) 10/05/24 22:15 Blood Culture - Preliminary Blood - Venous Draw (Peripheral) Imaging Venous US: Attestation: I have reviewed the pertinent imaging results. Radiologist's impression: XAM: US VENOUS DUPLEX LE BI HISTORY: d- dimer, cellulitis, leg/calf, edemad- dimer, cellulitis, leg/calf, edema; COMPARISON: None. TECHNIQUE: Grayscale and color Doppler imaging of the deep venous system of the right and left leg FINDINGS: Normal color Doppler flow, compressibility, and augmentation are observed within the right and left lower extremity from the common femoral vein through the posterior tibial vein. No DVT is identified. There is soft tissue edema of the left lower extremity. A left inguinal lymph node measuring 5.6 x 1.5 x 4.2 cm may be reactive in the setting of cellulitis. IMPRESSION: No DVT identified. Soft tissue edema of the left lower extremity with no organized fluid collections within the field of view Left inguinal lymphadenopathy may be reactive in the setting of suspected cellulitis. Attention to this finding on routine follow-up recommended. Discharge Plan Discharge Disposition: Home, Self-Care Condition: Improved Discharge Medications: New clindamycin HCl 300 mg capsule 300 mg PO Q6H Qty: 28 0RF Continued amlodipine 5 mg tablet 5 mg PO DAILY Patient Comments: TAKE ONE TABLET BY MOUTH DAILY Jardiance 25 mg tablet 25 mg PO DAILY Patient Comments: TAKE ONE TABLET BY MOUTH DAILY esomeprazole magnesium 40 mg capsule,delayed release(DR/EC) 40 mg PO Q24H Patient Comments: TAKE ONE TABLET BY MOUTH DAILY AT BEDTIME levothyroxine 175 mcg tablet 175 mcg PO DAILY Patient Comments: TAKE ONE TABLET BY MOUTH IN THE MORNING Linzess 145 mcg capsule 145 mcg PO DAILY Patient Comments: TAKE ONE CAPSULE BY MOUTH DAILY montelukast 10 mg tablet 10 mg PO DAILY Patient Comments: TAKE ONE TABLET BY MOUTH DAILY olmesartan 20 mg tablet 20 mg PO DAILY Patient Comments: TAKE ONE TABLET BY MOUTH DAILY pantoprazole 40 mg tablet,delayed release (DR/EC) 40 mg PO DAILY Patient Comments: TAKE ONE TABLET BY MOUTH DAILY pregabalin 150 mg capsule 150 mg PO BID Patient Comments: TAKE ONE CAPSULE BY MOUTH TWICE DAILY roflumilast 500 mcg tablet 500 mcg PO DAILY Patient Comments: TAKE ONE TABLET BY MOUTH DAILY ropinirole 3 mg tablet 3 mg PO DAILY Patient Comments: TAKE ONE TABLET BY MOUTH DAILY AT BEDTIME rosuvastatin 40 mg tablet 40 mg PO DAILY Patient Comments: TAKE ONE TABLET BY MOUTH DAILY tamsulosin 0.4 mg capsule 0.4 mg PO DAILY Patient Comments: TAKE ONE CAPSULE BY MOUTH DAILY insulin glargine [Lantus Solostar U-100 Insulin] 100 unit/mL (3 mL) insulin pen 10 unit SUBCUT NIGHTLY Patient Comments: inject 10 units subcutaneously at bedtime tizanidine 4 mg tablet 4 mg PO DAILY PRN (Reason: muscle spasticity) Mounjaro 2.5 mg/0.5 mL pen injector 2.5 mg SUBCUT .weekly Patient Comments: inject 0.5mls subcutaneously once every 7 days metronidazole 500 mg tablet 500 mg PO BID Patient Comments: TAKE ONE TABLET BY MOUTH TWICE DAILY FOR 7 DAYS fluconazole 100 mg tablet 100 mg PO DAILY Patient Comments: TAKE ONE TABLET BY MOUTH DAILY for 7 days brimonidine [Alphagan P] 0.1 % drops 1 drp OPHTHALMIC (EYE) DAILY Patient Comments: drop 1 drop into each eye once a day Trelegy Ellipta 200-62.5-25 mcg blister with device 1 inh INHALATION Q24H Patient Comments: INHALE ONE PUFF INTO LUNGS BY MOUTH EVERY 24 HOURS levofloxacin 500 mg tablet 500 mg PO DAILY Patient Comments: TAKE ONE TABLET BY MOUTH DAILY FOR 10 DAYS (DME) True Metrix Glucose Test Strip Strip MISCELLANEOUS Patient Comments: USE TO CHECK BLOOD SUGAR FOUR TIMES DAILY (DME) Dexcom G7 Sensor Device MISCELLANEOUS Patient Comments: USE DIRECTED (DME) lancets [TRUEplus Lancets] 33 gauge misc MISCELLANEOUS Patient Comments: CHECK BLOOD SUAGR FOUR TIMES DAILY Discharge Orders: Discharge Order (Routine); Ordered 10/09/24 Ordered By: Kathy Watkins Activity: increase activity as tolerated Diet: advance to your usual diet Interventions: Discharge Assessment Last Done: 10/09/24 13:42 MED/SURG & ICU Observation Charge Sheet Last Done: 10/09/24 13:41 Patient Instructions: Cellulitis (GEN) Activity Restrictions/Additional Instructions: patient needs to keep leg elevated and compression on until follow up with PCP and further directions given at that time. avoid tub bathes and scrubbing or scratching the legs no shaving until released by PCP follow up PCP Friday or Friday as available Forms: Portal/Health Info Access Inst Follow-Ups: Leena Patterson NP [Primary Care Provider] - 10/13/24 9:00 am Discharge Date/Time: 10/09/24 15:01
== END 2024-10-09 15:01 | disposition home or self-care (01) | DRG 603 ==
LOC: MS → OBSVTOIN 17:05
PROVIDERS: ADMIT Family Medicine; ATTEND Family Medicine
DX: H54.40 Blindness, one eye, unspecified eye; I10 Essential (primary) hypertension; M79.7 Fibromyalgia; E11.9 Type 2 diabetes mellitus without complications; L03.116 Cellulitis of left lower limb; J44.9 Chronic obstructive pulmonary disease, unspecified; E87.6 Hypokalemia; Z79.899 Other long term (current) drug therapy; L04.3 Acute lymphadenitis of lower limb; E03.9 Hypothyroidism, unspecified; Z88.8 Allergy status to other drugs, medicaments and biological substances; Z79.4 Long term (current) use of insulin; K21.9 Gastro-esophageal reflux disease without esophagitis; G89.29 Other chronic pain; Z88.0 Allergy status to penicillin